=== PATIENT | female | born 1965 | race African-American/Black ===

== ENCOUNTER 2020-06-24 11:32 | Inpatient (IN) | payer OTHER ==
[2020-06-24] MEDS ORDERED: DEXAMETHASONE SOD PHOSPHATE 20 MG/5 ML VIAL IVPB ONE (11:43)
[2020-06-24] MEDS ORDERED: SODIUM CHLORIDE 0.9% 500 ML INFUS.BAG IV ONE (11:52)
[2020-06-24 12:54] LABS: BASO % 0.6 % (0-2.0); HEMATOCRIT 40.3 % (32.4-45.2); LYMPH % 16.5 % (8-40); MCH 30.5 pg (25.7-33.7); MCHC 34.8 g/dl (32.0-36.0); MEAN CELL VOLUME 87.5 fl (80-96); NEUT % 76.9 % (42.8-82.8); PLATELET COUNT 157 K/MM3 (134-434); RBC 4.61 M/mm3 (3.60-5.2); RDW 13.1 % (11.6-15.6); WHITE BLOOD COUNT 3.3 K/mm3 (4.0-10.0)
[2020-06-24] MEDS ORDERED: DEXAMETHASONE SOD PHOSPHATE 10 MG/1 ML VIAL ONE (13:10)
[2020-06-24 13:11] LABS: MAGNESIUM 2.3 mg/dL (1.8-2.4)
[2020-06-24 13:20] LABS: N-TERMINAL BNP 94.6 pg/ml (5-125)
[2020-06-24 13:21] LABS: INR 1.02 (0.83-1.09); PROTHROMBIN TIME (PATIENT) 12.3 SEC (9.7-13.0)
[2020-06-24 13:24] LABS: ACTIVATED PTT 31.9 SECONDS (25.2-36.5)
[2020-06-24 13:40] LABS: POTASSIUM 4.2 mmol/L (3.5-5.1)
[2020-06-24 13:43] LABS: ALBUMIN 3.6 g/dl (3.4-5.0); BLOOD UREA NITROGEN 21.5 mg/dL (7-18); CALCIUM 8.6 mg/dL (8.5-10.1)
[2020-06-24 13:46] LABS: CREATININE 1.1 mg/dL (0.55-1.3)
[2020-06-24 13:47] LABS: BILIRUBIN,TOTAL 0.5 mg/dL (0.2-1); TOT PROT 7.7 g/dl (6.4-8.2)
[2020-06-24 16:00] LABS: EPI CELLS 14 /uL (0-25.1); HYALINE CASTS 1 /uL (0-3.1); PH,URINE 5.5 (5.0-8.0); URINE APPEARANCE CLEAR; URINE BACTERIA 622 /uL (0-1359); URINE BILIRUBIN NEGATIVE (NEGATIVE); URINE COLOR YELLOW; URINE GLUCOSE (UA) NEGATIVE (NEGATIVE); URINE KETONE NEGATIVE (NEGATIVE); URINE LEUK ESTERASE NEGATIVE (NEGATIVE); URINE NITRITE NEGATIVE (NEGATIVE); URINE PROTEIN 2+ (NEGATIVE); URINE RBC 12 /uL (0-23.9); URINE UROBILINOGEN 0.2 mg/dL (0.2-1.0); URINE WBC 6 /uL (0-25.8)
[2020-06-24] MEDS ORDERED: ZINC SULFATE 220 MG CAPSULE (FP) ONE (17:41)
[2020-06-24] MEDS ORDERED: CHOLECALCIFEROL (VIT D3) 1,000 UNIT (25 MCG) TABLET ONE (17:41)
[2020-06-24] MEDS ORDERED: FAMOTIDINE 20 MG TABLET ONE (17:41)
[2020-06-24] MEDS ORDERED: ENOXAPARIN NA (PORCINE) 40 MG/0.4 ML DISP.SYRIN SQ ONE (17:42)
[2020-06-24] MEDS: FAMOTIDINE 20 MG TABLET PO SCH (17:50)
[2020-06-24] MEDS: ZINC SULFATE 220 MG CAPSULE (FP) PO SCH (17:50)
[2020-06-24] MEDS: ENOXAPARIN NA (PORCINE) 40 MG/0.4 ML DISP.SYRIN SQ SCH (17:50)
[2020-06-24] MEDS: CHOLECALCIFEROL (VIT D3) 1,000 UNIT (25 MCG) TABLET PO SCH (17:50)
[2020-06-24] MEDS: ASCORBIC ACID 500 MG TABLET (FP) PO SCH (22:24)
[2020-06-24] MEDS ORDERED: ASCORBIC ACID 500 MG TABLET (FP) ONE (22:24)
[2020-06-24 23:46] VITALS: BMI 38.9
[2020-06-25] MEDS: BENZOCAINE/MENTH/CETYLPYRD CL 1 EACH LOZENGE MM PRN (00:42)
[2020-06-25] MEDS: guaiFENesin 200 MG/10 ML 10 ML UNIT-DOSE CUPS PO PRN ×2 (00:42→11:53)
[2020-06-25] MEDS ORDERED: ACETAMINOPHEN 325 MG TABLET (FP) PO ONE (01:45)
[2020-06-25 08:43] LABS: BASO % 0.4 % (0-2.0); HEMATOCRIT 41.8 % (32.4-45.2); HEMOGLOBIN 14.4 GM/dL (10.7-15.3); LYMPH % 15.6 % (8-40); MCH 30.2 pg (25.7-33.7); MCHC 34.5 g/dl (32.0-36.0); MEAN CELL VOLUME 87.4 fl (80-96); MEAN PLT VOLUME 9.2 fl (7.5-11.1); MONO % 5.2 % (3.8-10.2); NEUT % 78.8 % (42.8-82.8); PLATELET COUNT 194 K/MM3 (134-434); RBC 4.78 M/mm3 (3.60-5.2); RDW 13.8 % (11.6-15.6); WHITE BLOOD COUNT 4.3 K/mm3 (4.0-10.0)
[2020-06-25] MEDS ORDERED: DEXTROSE 5%-WATER - 50 ML IVPB ONE (09:12)
[2020-06-25] MEDS ORDERED: cefTRIAXone SODIUM 1 GM VIAL ONE (09:12)
[2020-06-25 09:18] LABS: CALCIUM 8.9 mg/dL (8.5-10.1)
[2020-06-25 09:20] LABS: ALBUMIN 3.4 g/dl (3.4-5.0); BLOOD UREA NITROGEN 24.3 mg/dL (7-18)
[2020-06-25 09:22] LABS: CREATININE 1.1 mg/dL (0.55-1.3)
[2020-06-25 09:24] LABS: BILIRUBIN,TOTAL 0.5 mg/dL (0.2-1); TOT PROT 7.8 g/dl (6.4-8.2)
[2020-06-25] MEDS: ZINC SULFATE 220 MG CAPSULE (FP) PO SCH (09:49)
[2020-06-25] MEDS: FAMOTIDINE 20 MG TABLET PO SCH (09:49)
[2020-06-25] MEDS: DEXAMETHASONE SOD PHOSPHATE 10 MG/1 ML VIAL IVPUSH SCH (09:49)
[2020-06-25] MEDS: CHOLECALCIFEROL (VIT D3) 1,000 UNIT (25 MCG) TABLET PO SCH (09:49)
[2020-06-25] MEDS: ENOXAPARIN NA (PORCINE) 40 MG/0.4 ML DISP.SYRIN SQ SCH (09:49)
[2020-06-25] MEDS: ASCORBIC ACID 500 MG TABLET (FP) PO SCH ×2 (09:50→21:39)
[2020-06-25] MEDS: SODIUM CHLORIDE 1,000 ML IV SCH (09:50)
[2020-06-25] MEDS ORDERED: CEFTRIAXONE 1 GM in DEXTROSE 5%-WATER - 50 ML IVPB SCH (10:00)
[2020-06-25] MEDS ORDERED: AZITHROMYCIN IVPB 500 MG/250 ML BAG IVPB SCH (10:00)
[2020-06-25] MEDS: amLODIPine BESYLATE 10 MG TABLET (FP) PO SCH (11:47)
[2020-06-25] MEDS ORDERED: ALBUTEROL SO4 HFA INHALER IH PRN (12:23)
[2020-06-25] MEDS: guaiFENesin/CODEINE 10 ML UNIT-DOSE CUPS PO PRN ×2 (13:35→21:39)
[2020-06-25] MEDS ORDERED: REMDESIVIR 200 MG in SODIUM CHLORIDE 210 ML IVPB ONE (14:00)
[2020-06-25] MEDS: BUDESONIDE/FORMETEROL FUMARATE 160/4.5 mcg INHALER IH SCH (21:40)
[2020-06-26] MEDS ORDERED: ACETAMINOPHEN 325 MG TABLET (FP) PO PRN ×2 (05:13→08:53)
[2020-06-26 07:32] LABS: POTASSIUM 4.2 mmol/L (3.5-5.1)
[2020-06-26 07:37] LABS: CALCIUM 8.1 mg/dL (8.5-10.1)
[2020-06-26 07:38] LABS: ALBUMIN 2.9 g/dl (3.4-5.0); BLOOD UREA NITROGEN 25.8 mg/dL (7-18)
[2020-06-26 07:42] LABS: BILIRUBIN,TOTAL 0.4 mg/dL (0.2-1); TOT PROT 6.7 g/dl (6.4-8.2)
[2020-06-26 07:45] LABS: HEMATOCRIT 36.7 % (32.4-45.2); HEMOGLOBIN 12.8 GM/dL (10.7-15.3); MCH 30.5 pg (25.7-33.7); MCHC 34.8 g/dl (32.0-36.0); MEAN CELL VOLUME 87.7 fl (80-96); MEAN PLT VOLUME 9.4 fl (7.5-11.1); PLATELET COUNT 240 K/MM3 (134-434); RBC 4.18 M/mm3 (3.60-5.2); RDW 13.7 % (11.6-15.6); WHITE BLOOD COUNT 5.2 K/mm3 (4.0-10.0)
[2020-06-26] MEDS: ENOXAPARIN NA (PORCINE) 40 MG/0.4 ML DISP.SYRIN SQ SCH (09:23)
[2020-06-26] MEDS: CHOLECALCIFEROL (VIT D3) 1,000 UNIT (25 MCG) TABLET PO SCH (09:24)
[2020-06-26] MEDS: amLODIPine BESYLATE 10 MG TABLET (FP) PO SCH (09:25)
[2020-06-26] MEDS: DEXAMETHASONE SOD PHOSPHATE 10 MG/1 ML VIAL IVPUSH SCH (09:25)
[2020-06-26] MEDS: guaiFENesin/CODEINE 10 ML UNIT-DOSE CUPS PO PRN ×2 (09:25→20:17)
[2020-06-26] MEDS: ASCORBIC ACID 500 MG TABLET (FP) PO SCH ×2 (09:25→21:56)
[2020-06-26] MEDS: ZINC SULFATE 220 MG CAPSULE (FP) PO SCH (09:25)
[2020-06-26] MEDS: FAMOTIDINE 20 MG TABLET PO SCH (09:26)
[2020-06-26] MEDS: BUDESONIDE/FORMETEROL FUMARATE 160/4.5 mcg INHALER IH SCH ×2 (10:57→21:56)
[2020-06-26] MEDS: SODIUM CHLORIDE 1,000 ML IV SCH (13:31)
[2020-06-26] MEDS: REMDESIVIR 100 MG in SODIUM CHLORIDE 230 ML IVPB SCH (13:31)
[2020-06-26] MEDS: BENZOCAINE/MENTH/CETYLPYRD CL 1 EACH LOZENGE MM PRN (20:17)
[2020-06-27 07:53] LABS: POTASSIUM 4.3 mmol/L (3.5-5.1)
[2020-06-27 07:55] LABS: CALCIUM 7.9 mg/dL (8.5-10.1)
[2020-06-27 07:56] LABS: ALBUMIN 2.7 g/dl (3.4-5.0); BLOOD UREA NITROGEN 17.8 mg/dL (7-18)
[2020-06-27 07:59] LABS: CREATININE 0.8 mg/dL (0.55-1.3)
[2020-06-27 08:01] LABS: BILIRUBIN,TOTAL 0.4 mg/dL (0.2-1); TOT PROT 6.5 g/dl (6.4-8.2)
[2020-06-27] MEDS: amLODIPine BESYLATE 10 MG TABLET (FP) PO SCH (09:25)
[2020-06-27] MEDS: ZINC SULFATE 220 MG CAPSULE (FP) PO SCH (09:25)
[2020-06-27] MEDS: BUDESONIDE/FORMETEROL FUMARATE 160/4.5 mcg INHALER IH SCH ×2 (09:26→21:20)
[2020-06-27] MEDS: CHOLECALCIFEROL (VIT D3) 1,000 UNIT (25 MCG) TABLET PO SCH (09:26)
[2020-06-27] MEDS: BENZOCAINE/MENTH/CETYLPYRD CL 1 EACH LOZENGE MM PRN ×2 (09:26→20:31)
[2020-06-27] MEDS: FAMOTIDINE 20 MG TABLET PO SCH (09:26)
[2020-06-27] MEDS: ASCORBIC ACID 500 MG TABLET (FP) PO SCH ×2 (09:26→21:20)
[2020-06-27] MEDS: SODIUM CHLORIDE 1,000 ML IV SCH ×2 (09:27→19:48)
[2020-06-27] MEDS: ENOXAPARIN NA (PORCINE) 40 MG/0.4 ML DISP.SYRIN SQ SCH (09:27)
[2020-06-27] MEDS: DEXAMETHASONE SOD PHOSPHATE 10 MG/1 ML VIAL IVPUSH SCH (09:27)
[2020-06-27] MEDS: REMDESIVIR 100 MG in SODIUM CHLORIDE 230 ML IVPB SCH (13:01)
[2020-06-27] MEDS ORDERED: SODIUM CHLORIDE NASAL SPRAY 44 ML BOTTLE NS PRN (18:56)
[2020-06-27] MEDS: guaiFENesin/CODEINE 10 ML UNIT-DOSE CUPS PO PRN (20:03)
[2020-06-28 07:37] LABS: POTASSIUM 4.1 mmol/L (3.5-5.1)
[2020-06-28 07:42] LABS: ALBUMIN 2.7 g/dl (3.4-5.0); BLOOD UREA NITROGEN 18.8 mg/dL (7-18); CALCIUM 8.4 mg/dL (8.5-10.1)
[2020-06-28 07:45] LABS: CREATININE 0.7 mg/dL (0.55-1.3)
[2020-06-28 07:47] LABS: BILIRUBIN,TOTAL 0.4 mg/dL (0.2-1); TOT PROT 6.6 g/dl (6.4-8.2)
[2020-06-28] MEDS: guaiFENesin/CODEINE 10 ML UNIT-DOSE CUPS PO PRN (09:26)
[2020-06-28] MEDS: CHOLECALCIFEROL (VIT D3) 1,000 UNIT (25 MCG) TABLET PO SCH (09:27)
[2020-06-28] MEDS: LOSARTAN POTASSIUM 50 MG TABLET PO SCH (09:28)
[2020-06-28] MEDS: ENOXAPARIN NA (PORCINE) 40 MG/0.4 ML DISP.SYRIN SQ SCH (09:28)
[2020-06-28] MEDS: ASCORBIC ACID 500 MG TABLET (FP) PO SCH ×2 (09:29→21:02)
[2020-06-28] MEDS: FAMOTIDINE 20 MG TABLET PO SCH (09:29)
[2020-06-28] MEDS: ZINC SULFATE 220 MG CAPSULE (FP) PO SCH (09:29)
[2020-06-28] MEDS: amLODIPine BESYLATE 10 MG TABLET (FP) PO SCH (09:29)
[2020-06-28] MEDS: DEXAMETHASONE SOD PHOSPHATE 10 MG/1 ML VIAL IVPUSH SCH (09:30)
[2020-06-28] MEDS: BUDESONIDE/FORMETEROL FUMARATE 160/4.5 mcg INHALER IH SCH ×2 (10:07→21:02)
[2020-06-28] MEDS: SODIUM CHLORIDE 1,000 ML IV SCH (11:25)
[2020-06-28] MEDS: REMDESIVIR 100 MG in SODIUM CHLORIDE 230 ML IVPB SCH (13:31)
[2020-06-29 07:31] LABS: BASO % 0.1 % (0-2.0); EOS % 0.5 % (0-4.5); HEMATOCRIT 39.4 % (32.4-45.2); HEMOGLOBIN 13.6 GM/dL (10.7-15.3); MCH 30.3 pg (25.7-33.7); MCHC 34.5 g/dl (32.0-36.0); MEAN CELL VOLUME 88.1 fl (80-96); MEAN PLT VOLUME 8.3 fl (7.5-11.1); MONO % 7.4 % (3.8-10.2); PLATELET COUNT 466 K/MM3 (134-434); RBC 4.47 M/mm3 (3.60-5.2); RDW 13.2 % (11.6-15.6); WHITE BLOOD COUNT 3.9 K/mm3 (4.0-10.0)
[2020-06-29 08:00] LABS: POTASSIUM 4.2 mmol/L (3.5-5.1)
[2020-06-29 08:07] LABS: ALBUMIN 2.6 g/dl (3.4-5.0); BLOOD UREA NITROGEN 23.1 mg/dL (7-18); CALCIUM 8.6 mg/dL (8.5-10.1)
[2020-06-29 08:10] LABS: BILIRUBIN,TOTAL 0.4 mg/dL (0.2-1); CREATININE 0.8 mg/dL (0.55-1.3); TOT PROT 6.5 g/dl (6.4-8.2)
[2020-06-29] MEDS ORDERED: PT OWN MED DRAWER 7, Y5N ONE (09:32)
[2020-06-29] MEDS: ZINC SULFATE 220 MG CAPSULE (FP) PO SCH (09:40)
[2020-06-29] MEDS: guaiFENesin/CODEINE 10 ML UNIT-DOSE CUPS PO PRN (09:40)
[2020-06-29] MEDS: ENOXAPARIN NA (PORCINE) 40 MG/0.4 ML DISP.SYRIN SQ SCH (09:40)
[2020-06-29] MEDS: amLODIPine BESYLATE 10 MG TABLET (FP) PO SCH (09:40)
[2020-06-29] MEDS: ASCORBIC ACID 500 MG TABLET (FP) PO SCH ×2 (09:41→22:00)
[2020-06-29] MEDS: LOSARTAN POTASSIUM 50 MG TABLET PO SCH (09:41)
[2020-06-29] MEDS: FAMOTIDINE 20 MG TABLET PO SCH (09:41)
[2020-06-29] MEDS: CHOLECALCIFEROL (VIT D3) 1,000 UNIT (25 MCG) TABLET PO SCH (09:42)
[2020-06-29] MEDS: DEXAMETHASONE SOD PHOSPHATE 10 MG/1 ML VIAL IVPUSH SCH (09:42)
[2020-06-29] MEDS: BUDESONIDE/FORMETEROL FUMARATE 160/4.5 mcg INHALER IH SCH ×2 (10:00→22:01)
[2020-06-29 13:48] LABS: ANISOCYTOSIS 0; MACROCYTOSIS 0; PLATELET ESTIMATE NORMAL
[2020-06-29] MEDS: REMDESIVIR 100 MG in SODIUM CHLORIDE 230 ML IVPB SCH (14:31)
[2020-06-29 20:20] VITALS: BP 147/71; PULSE 71; TEMP 98.8
== END 2020-06-30 00:26 | disposition home or self-care (01) | DRG 177 ==
LOC: JER 11:32 → JERBED 11:44 → J4W 22:42
PROVIDERS: ATTEND Internal Medicine
PROC: XW033E5 Introduction of Remdesivir Anti-infective into Peripheral Vein, Percutaneous Approach, New Technology Group 5 (ICD-10-PCS; 2020-06-25)
PROC: XW13325 Transfusion of Convalescent Plasma (Nonautologous) into Peripheral Vein, Percutaneous Approach, New Technology Group 5 (ICD-10-PCS; principal; 2020-06-26)
DX: U07.1 COVID-19 (principal); J12.82 Pneumonia due to coronavirus disease 2019; J96.01 Acute respiratory failure with hypoxia; E87.1 Hypo-osmolality and hyponatremia; I24.8 Other forms of acute ischemic heart disease; M62.82 Rhabdomyolysis; E78.5 Hyperlipidemia, unspecified; A08.39 Other viral enteritis; R74.8 Abnormal levels of other serum enzymes; E66.9 Obesity, unspecified; I10 Essential (primary) hypertension; Z68.39 Body mass index [BMI] 39.0-39.9, adult
CPT/HCPCS: 36415; 36430; 71045-TC-FY; 80048; 80053; 81003; 82550; 82553; 82565; 82728; 83605; 83615; 83735; 83880; 83930; 83935; 84295; 84300; 84484; 84703; 85025; 85027; 85379; 85610; 85730; 86140; 86769; 86850; 86900; 86901; 87040; 87086; 87804; 87899; 93005; 93010; 94761; 99285-25; C9399; C9803; J1100; P9017; U0003